=== PATIENT | male | born 1995 | race Hispanic/Latino ===

== ENCOUNTER 2016-08-09 11:43 | Emergency (ER) | payer OTHER ==
[~2016-08-09] VITALS: Ht 182.9 cm; Wt 95.3 kg
[~2016-08-09 11:43] MED LIST: ATIVAN1 M1 PO; BYSTOLIC5 M1 PO; DOXYCYCLINE HY100 M4 PO; ESCITALOPRAM OX10 MG PO; NASONEX17 GM NASB; PANTOPRAZOLE SO20 M1 PO
[2016-08-09] MEDS ORDERED: ESCITALOPRAM OX20 MG PO (12:12)
--- NOTE | 2016-08-09 12:23 | ED EYE COMPLAINT ---
History of Present Illness General Chief Complaint: Eye Problems Stated Complaint: MEDICATED CREAM IN EYE Source: patient Exam Limitations: no limitations Vital Signs & Intake/Output Vital Signs & Intake/Output Vital Signs Date Time Temp Pulse Resp B/P Pulse O2 O2 Flow FiO2 Ox Delivery Rate 08/09 1259 98.1 74 17 136/81 98 Room Air 08/09 1146 97.4 109 16 157/88 98 Room Air Allergies Coded Allergies: Penicillins (Intermediate, RASH 05/21/16) amoxicillin (Intermediate, RASH 05/21/16) Reconcile Medications Doxycycline Hyclate 100 MG TABLET 1 TAB PO BID INFECTION (Reported) Escitalopram Oxalate 10 MG TABLET 1 TAB PO DAILY ANXIETY (Reported) Escitalopram Oxalate 20 MG TABLET 1 TAB PO DAILY DEPRESSION (Reported) Lorazepam (Ativan) 1 MG TABLET 1 TAB PO BID PRN panic attack sixteen...[id number] Mometasone Furoate (Nasonex) 50 MCG SPRAY.PUMP 2 SPRAY NASB DAILY CONGESTION (Reported) Nebivolol HCl (Bystolic) 5 MG TABLET 1 TAB PO DAILY HTN (Reported) Pantoprazole Sodium 20 MG TABLET.DR 1 TAB PO DAILY GERD (Reported) Triage Note: 21 Y/O MALE STATES HE USED PERMETHRINI 5% CREAM LAST NIGHT AND THEN WOKE UP THIS AM AND RUBBED EYE. NOW HAS IRRITATION IN L EYE. Triage Nurses Notes Reviewed? yes Onset: Abrupt Duration: hour(s):, improving Timing: recent history No Modifying Factors: none HPI: 21-year-old male comes into emergency room with complaints of some burning to his left eye. Patient reports that he had permethrin cream 5% that he rubbed on his body last night. Patient reports that he woke up today and it itches left eye and experienced some burning and he felt like his vision was slightly blurry. Denies any vision loss. Denies any other associated symptoms. No contacts. (JOVANI BLACKBURN) Past History Travel History Traveled to [place] past 21 day No Medical History Any Pertinent Medical History? see below for history Neurological: NONE EENT: NONE Cardiovascular: hypertension, palpitations Respiratory: NONE Gastrointestinal: NONE Hepatic: NONE Renal: NONE Musculoskeletal: NONE Psychiatric: anxiety Endocrine: NONE Surgical History Surgical History: none Psychosocial History What is your primary language Pashto Tobacco Use: Never used Family History Hx Contributory? No (JOVANI BLACKBURN) Review of Systems Review of Systems Constitutional: Reports: no symptoms. Eyes: Reports: see HPI. Ear: Reports: no symptoms. Nose: Reports: no symptoms. Mouth: Reports: no symptoms. Throat: Reports: no symptoms. Respiratory: Reports: no symptoms. Cardiovascular: Reports: no symptoms. GI: Reports: no symptoms. Genitourinary: Reports: no symptoms. Musculoskeletal: Reports: no symptoms. Skin: Reports: no symptoms. Neurological/Psychological: Reports: no symptoms. Hematologic/Endocrine: Reports: no symptoms. Immunologic/Allergic: Reports: no symptoms. All Other Systems: Reviewed and Negative (JOVANI BLACKBURN) Physical Exam General Appearance: well developed/nourished, mild distress General Inspection: normal inspection Eyelid: normal inspection Conjunctiva/Sclera: normal inspection Cornea: normal inspection EOM: intact Pupil: normal accommodation, normal pupil, PERRL General Inspection: normal inspection Eyelid: normal inspection Conjunctiva/Sclera: normal inspection Cornea: normal inspection EOM: intact Pupil: normal accommodation, normal pupil, PERRL Physical Exam Head: atraumatic Nose: normal inspection Mouth/Throat: normal mouth inspection Neck: normal inspection Cardiovascular/Respiratory: no respiratory distress Neurologic/Psych: awake, alert, oriented x 3, normal mood/affect Skin: intact, normal color, warm/dry (JOVANI BLACKBURN) Progress Differential Diagnosis: corneal abrasion, corneal foreign body, conjunctivitis, detached retina, glaucoma, globe rupture, retinal art./v. occlusion Plan of Care: 08/09/2016 12:49:32 PM Patient has no signs of erythema on exam. Patient has no symptoms of foreign body. At this point in time patient clinically looks well. Patient reports that he was very anxious and was nervous that something could happen if that medication got into his eyes. No suspicion for corneal abrasion at this time. I spoke with poison control who reports that there is nothing to do other than irrigation. Patient was irrigated with 250 bolus of normal saline here. Patient had irrigated his eye earlier. Symptoms had already improved. Patient vision 20/25 in left eye and 20/20 in right eye. Patient clinically looks well. There is no evidence of any trauma or even injections in the left eye. At this point in time I do not feel patient requires any further evaluation with fluorescein staining and patient can be discharged with instructions to follow- up with ophthalmology if his symptoms worsen in anyway. (JOVANI BLACKBURN) Departure Departure Disposition: HOME OR SELF CARE Condition: Stable Clinical Impression Primary Impression: Chemical exposure of eye Referrals: FREDY REDDY MD (PCP/Family) GAB MORSE,CORNELL Sims Additional Instructions: Return if any concerns worsening symptoms. Return if any vision loss. Return if any increased pain. you can irrigate at home. Please go over all results of today's visit with your primary care doctor. Contact your primary care doctor to let them know you were here in the emergency room. There may be nonspecific findings which may not be related to your visit today here in the emergency room but may require further evaluation and chronic monitoring by your primary care doctor. If you had a laceration today the chance of foreign body always remains. You should follow-up with your primary care doctor for recheck in 3-5 days for a wound check. If you had an x-ray done there is a chance that a fracture could have been missed on initial read and you should follow-up with your primary care doctor for repeat x-rays if symptoms persist. If your blood pressure was elevated here in the emergency room please have rechecked by her primary care doctor within the next 48 hours by your primary care doctor. If you were prescribed a narcotic here in the emergency room or any type of controlled substances you're not allowed to drive while taking this medication or operate any type of heavy machinery. Narcotics can make you feel lightheaded dizziness nausea and can cause constipation. You may need to slat pickler a stool softener. Thank you for choosing [facility] emergency room. Please return to the emergency room immediately if you have any other concerns worsening of symptoms. Departure Forms: Customer Survey General Discharge Information (JOVANI BLACKBURN) PA/GRINDER AND PLATER Co-Sign Statement Statement: ED Attending supervision documentation- [] I saw and evaluated the patient. I have also reviewed all the pertinent lab results and diagnostic results. I agree with the findings and the plan of care as documented in the PA's/GRINDER AND PLATER's documentation. [X] I have reviewed the ED Record and agree with the PA's/GRINDER AND PLATER's documentation. [] Additions or exceptions (if any) to the PAs/GRINDER AND PLATER's note and plan are summarized below: [] (JHONNY BRISCOE DO)
[2016-08-09 12:59] VITALS: BP 136/81
== END 2016-08-09 13:01 ==
LOC: ERH 11:43
DX: Z77.098 Contact with and (suspected) exposure to other hazardous, chiefly nonmedicinal, chemicals (principal)

== ENCOUNTER 2016-08-16 01:50 | Emergency (ER) | payer OTHER ==
[~2016-08-16] VITALS: Ht 182.9 cm; Wt 90.7 kg
[~2016-08-16 01:50] MED LIST changes: +ESCITALOPRAM OX20 MG PO
--- NOTE | 2016-08-16 02:55 | ED GENERAL ADULT ---
History of Present Illness General Chief Complaint: General Adult Stated Complaint: UPPER ABD PAIN, LEFT TESTICLE PAIN? Source: patient, old records Exam Limitations: no limitations Vital Signs & Intake/Output Vital Signs & Intake/Output Vital Signs Date Time Temp Pulse Resp B/P Pulse O2 O2 Flow FiO2 Ox Delivery Rate 08/16 0235 96.9 65 18 151/67 98 Room Air Allergies Coded Allergies: Penicillins (Intermediate, RASH 08/16/16) amoxicillin (Intermediate, RASH 08/16/16) Reconcile Medications Baclofen 10 MG TABLET 1-2 TAB PO TID PRN muscle strain Escitalopram Oxalate 20 MG TABLET 1 TAB PO DAILY DEPRESSION (Reported) Ibuprofen 600 MG TABLET 1 TAB PO Q6PRN PRN pain with food Lorazepam (Ativan) 1 MG TABLET 1 TAB PO BID PRN panic attack sixteen...[id number] Mometasone Furoate (Nasonex) 50 MCG SPRAY.PUMP 2 SPRAY NASB DAILY CONGESTION (Reported) Nebivolol HCl (Bystolic) 5 MG TABLET 1 TAB PO DAILY HTN (Reported) Pantoprazole Sodium 20 MG TABLET.DR 1 TAB PO DAILY GERD (Reported) Triage Note: TRIAGE: PATIENT TO ER FROM HOME REPORTING ABD PAIN SINCE YESTERDAY W/ SHARP PAINS IN [place], REPORTS "THOUGHT IT WAS JUST ANXIETY BUT TAKING ANXIETY MEDS." HERE RECENTLY FOR L GROIN PAIN INTO L TESTICLE WHICH SUBSIDED WHEN PATIENT GOT TO WAITING ROOM, "LIKE A TWISTING FEELING." DENIES V/D/ URINARY DIFFICULTIES. REPORTS INTERMITTENT "HEAD HEAVINESS." Triage Nurses Notes Reviewed? yes Onset: 2 days Duration: day(s):, better Timing: recent history Injury Environment: work Severity: mild Modifying Factors: Improves With: rest. Worsens With: movement. HPI: 2 days prior to admission patient complains of right upper quadrant bilateral sharp intermittent chest pain worse with movement of arms turning twisting. Prior to admission he complains of left scrotal discomfort that is now gone. He denies fever chills shortness of breath nausea vomiting diarrhea abdominal pain dysuria penile discharge rash headache bleeding. Past History Travel History Traveled to [place] past 21 day No Medical History Any Pertinent Medical History? see below for history Neurological: NONE EENT: NONE Cardiovascular: hypertension, palpitations Respiratory: NONE Gastrointestinal: NONE Hepatic: NONE Renal: NONE Musculoskeletal: NONE Psychiatric: anxiety, depression Endocrine: NONE Blood Disorders: NONE Cancer(s): NONE CADDY/Reproductive: NONE Surgical History Surgical History: none Psychosocial History What is your primary language Belarusian Tobacco Use: Never used Family History Hx Contributory? No Review of Systems Review of Systems Constitutional: Reports: no symptoms. EENTM: Reports: no symptoms. Respiratory: Reports: no symptoms. Cardiovascular: Reports: see HPI, chest pain. GI: Reports: see HPI, abdominal pain. Genitourinary: Reports: see HPI, pain. Musculoskeletal: Reports: no symptoms. Skin: Reports: no symptoms. Neurological/Psychological: Reports: no symptoms. Hematologic/Endocrine: Reports: no symptoms. Immunologic/Allergic: Reports: no symptoms. All Other Systems: Reviewed and Negative Physical Exam Physical Exam General Appearance: well developed/nourished, alert, awake, anxious, mild distress Head: atraumatic, normal appearance Eyes: Bilateral: normal appearance, PERRL, EOMI. Ears, Nose, Throat: normal pharynx, normal ENT inspection Neck: normal inspection, supple, full range of motion, no midline tenderness Respiratory: normal breath sounds, chest non-tender, no respiratory distress, quiet respiration, lungs clear Cardiovascular: regular rate/rhythm, normal peripheral pulses, norml femoral pulses equa Peripheral Pulses: 4+ carotid (R), 4+ carotid (L) Gastrointestinal: normal bowel sounds, soft, non-tender, no organomegaly, No testicular tenderness + cremasteric reflex bilateral Back: normal inspection, normal range of motion, no vertebral tenderness Extremities: normal inspection, normal capillary refill, normal range of motion, no edema Neurologic/Psych: no motor/sensory deficits, awake, alert, oriented x 3, normal gait, manager diversity II-XII nml as tested Reflexes: 2+: bicep (R), bicep (L). Skin: intact, normal color, warm/dry Lymphatic: no anterior cervical pascale Core Measures ACS in differential dx? No CVA/TIA Diagnosis: No Severe Sepsis Present: No Septic Shock Present: No Progress Differential Diagnoses I considered the following diagnoses in my evaluation of the patient: Musculoskeletal strain abdominal hernia torsion Plan of Care: Orders Procedure Date/time Status URINALYSIS 08/16 315 Complete Laboratory Tests 08/16/16 0323: Urine Color STRAW, Urine Clarity CLEAR, Urine pH 6.5, Ur Specific [place] 1.015, Urine Protein NEG, Urine Ketones NEG, Urine Nitrite NEG, Urine Bilirubin NEG, Urine Urobilinogen 0.2, Ur Leukocyte Esterase NEG, Ur Microscopic EXAM NOT REQUIRED, Urine Hemoglobin NEG, Urine Glucose NEG NSAID muscle relaxant (KEVIN AMIN MD) Diagnostic Imaging: Viewed by Me: Ultrasound. Discussed w/RAD: Ultrasound. Radiology Impression: no acute abnormality Initial ED EKG: none Departure Departure Time of Disposition: 251 Disposition: HOME OR SELF CARE Condition: Stable Clinical Impression Primary Impression: Deep inguinal pain, left Secondary Impressions: Musculoskeletal pain Referrals: FREDY REDDY MD (PCP/Family) Departure Forms: Customer Survey General Discharge Information RELEASE- WORK Prescriptions: Current Visit Scripts Ibuprofen 1 TAB PO Q6PRN PRN pain #50 TAB with food Baclofen 1-2 TAB PO TID PRN muscle strain #30 TAB Critical Care Note Critical Care Note Critical Care Time: non-applicable
--- NOTE | 2016-08-16 04:02 | ULTRASOUND REPORT ---
EXAMINATION: US SCROTUM CLINICAL INFORMATION: Left testicular pain. COMPARISON: None. TECHNIQUE: A sonogram of the scrotum was performed assessing edgar-scale appearance and color Doppler flow. FINDINGS: RIGHT: Right testicle measures 4.5 x 2.1 x 3.6 cm, volume 24.2 mL. Parenchymal echotexture is normal. No focal testicular parenchymal lesions are visualized. Normal symmetric intratesticular flow is visualized. Right epididymal head is normal in size. There is a 0.6 cm epididymal head cyst. No right hydrocele or varicocele is seen. LEFT: Left testicle measures 4.7 x 1.9 x 2.9 cm, volume 18.4 mL. Parenchymal echotexture is normal. No focal testicular parenchymal lesions are visualized. Normal symmetric intratesticular flow is visualized. Left epididymal head is normal in size. No left hydrocele or varicocele is seen. IMPRESSION: No evidence of testicular torsion. Right epididymal head cyst.
[2016-08-16] MEDS ORDERED: BACLOFEN10 M1 PO (04:16)
[2016-08-16] MEDS ORDERED: IBUPROFEN600 M1 PO (04:16)
[2016-08-16 04:30] VITALS: BP 142/65
== END 2016-08-16 04:31 ==
LOC: ERH 01:50
DX: R10.30 Lower abdominal pain, unspecified (principal); M79.1 Myalgia; R07.9 Chest pain, unspecified
CPT/HCPCS: 81003

== ENCOUNTER 2016-11-17 13:25 | Emergency (ER) | payer OTHER ==
[~2016-11-17 13:25] MED LIST changes: +BACLOFEN10 M1 PO; +IBUPROFEN600 M1 PO
[2016-11-17 13:41] VITALS: BP 147/92
--- NOTE | 2016-11-17 13:50 | ED GI/GU/ABDOMINAL COMPLAINT ---
History of Present Illness General Chief Complaint: Male Genitourinary Problems Stated Complaint: "I NEED TO BE CHECKED FOR STDS" Source: patient, old records Exam Limitations: no limitations Vital Signs & Intake/Output Vital Signs & Intake/Output Vital Signs Date Time Temp Pulse Resp B/P Pulse O2 O2 Flow FiO2 Ox Delivery Rate 11/17 1341 97.2 90 22 147/92 98 Allergies Coded Allergies: Penicillins (Intermediate, RASH 08/16/16) amoxicillin (Intermediate, RASH 08/16/16) Reconcile Medications Escitalopram Oxalate 20 MG TABLET 1 TAB PO DAILY DEPRESSION (Reported) Ibuprofen 600 MG TABLET 1 TAB PO Q6PRN PRN pain with food Lorazepam (Ativan) 1 MG TABLET 1 TAB PO BID PRN panic attack sixteen...[id number] Mometasone Furoate (Nasonex) 50 MCG SPRAY.PUMP 2 SPRAY NASB DAILY CONGESTION (Reported) Nebivolol HCl (Bystolic) 5 MG TABLET 1 TAB PO DAILY HTN (Reported) Pantoprazole Sodium 20 MG TABLET.DR 1 TAB PO DAILY GERD (Reported) Triage Note: PER PT FEELING ANXIOUS AND WANT TO BE CHECKED FRO STD, PER PT TINGLING IN PENIS SINCE LAST NIGHT NO DISCHARGE Triage Nurses Notes Reviewed? yes Onset: Abrupt Duration: day(s): (2), better, constant Timing: recent history Quality/Severity: burning Severity Numbers: 4 Location: urethral Radiation: no radiation Activities at Onset: none Prior Abdominal Problems: similar symptoms (d/w chlaymdia several yrs ago) Sexually Active: Yes Last Time You Were Sexual: less than 2 months ago Sexual Orientation: Heterosexual Use of Protection: Yes Sometimes No Modifying Factors: none Associated Symptoms: denies HPI: 21-year-old male with anxiety presents emergency room for evaluation complaining of burning tingling with urination that he first noticed yesterday. Patient states he's had history of similar symptoms in the past was diagnosed with chlamydia which was treated at the time of antibiotics. Patient states that he was last sexually active approximately 3 weeks ago with a new partner that he did not use protection with. He denies any rashes to the skin penile or scrotal pain. He states he urinated today without any complaints. No discharge hematuria. No abdominal pain fever chills nausea or vomiting. he was recently check in october 2016 he states for std's and was negative (RUBA DIEZ) Past History Travel History Traveled to [place] past 21 day No Medical History Any Pertinent Medical History? see below for history Neurological: NONE EENT: NONE Cardiovascular: hypertension, palpitations Respiratory: NONE Gastrointestinal: NONE Hepatic: NONE Renal: NONE Musculoskeletal: NONE Psychiatric: anxiety, depression Endocrine: NONE Blood Disorders: NONE Cancer(s): NONE CUT ORDER HAND/Reproductive: NONE Surgical History Surgical History: none Psychosocial History What is your primary language Greenlandic Tobacco Use: Never used Family History Hx Contributory? No (RUBA DIEZ) Review of Systems Review of Systems Constitutional: Reports: see HPI. All Other Systems: Reviewed and Negative Comments Review of systems: See HPI, All other systems negative. Constitutional, no chills no fever, no malaise HEENT: no sore throat no congestion, Cardiovascular: No chest pain , no palpitation Skin, no rashes, no change in skin Respiratory: No dyspnea no cough no sputum GI: No nausea no vomiting, no diarrhea : dysuria No hematuria, no frequency, no discharge Muscle skeletal: No joint pain, no joint swelling, no back pain, no neck pain, Neurologic: no headache Psych: No stress Heme/endocrine: No bruising no bleeding Immunology: No lymphadenopathy (RUBA DIEZ) Physical Exam Physical Exam General Appearance: well developed/nourished, no apparent distress, alert, awake Gastrointestinal: soft Comments: Well-developed well-nourished patient in no apparent distress. HEENT: Atraumatic, extraocular motion intact Neck: Supple, FROM Back: FROM Cardiovascular: Regular rate and rhythms no murmurs rubs or gallops, Respiratory: No respiratory distress. Patient speaking in full complete sentences. Breath sounds clear to auscultation bilaterally: NO W/R/R Abdomen: Soft nontender no rebound or guarding : deferred Extremities: full range of motion Neuro: Alert and oriented x3 Skin: Warm & dry;No appreciable rash on exposed skin Psych: Mood affect normal, normal memory normal judgment. Core Measures ACS in differential dx? No Severe Sepsis Present: No Septic Shock Present: No (RUBA DIEZ) Progress Differential Diagnosis: epididymitis, orchitis, prostatitis, STD, testicular torsion, ureterolithiasis, urinary retention, UTI/pyelo Plan of Care: Orders Procedure Date/time Status CHLAMYDIA-GC DNA PROBE 11/17 1339 Active Microbiology 11/17 1400 URINE ROUT: GC DNA Probe - RECD 11/17 1400 URINE ROUT: Chlamydia DNA Probe (GIULIANA) - RECD I discussed with the patient at length plan of care we will treat prophylactically at this time with Rocephin, azithromycin. He will follow up with medical records this week for results. Discussed with him that if they're positive he needs to reach out to his exposed partners. I had an extensive conversation regarding need for close follow up with their primary care physician this week as well as return precautions. I answered all of their questions, they feel comfortable with the plan and follow-up care. (RUBA DIEZ) Initial ED EKG: none (RUBA DIEZ) Departure Departure Time of Disposition: 1359 Disposition: HOME OR SELF CARE Condition: Stable Clinical Impression Primary Impression: Encounter for screening examination for sexually transmitted disease Referrals: FREDY REDDY MD (PCP/Family) Additional Instructions: As discussed been treated prophylactically for suspected sexual transmitted disease today. Follow-up in 48-72 hours for results. Return anytime sooner with any concerns. Departure Forms: Customer Survey General Discharge Information (RUBA DIEZ) PA/ART DEPARTMENT HEAD Co-Sign Statement Statement: ED Attending supervision documentation- [] I saw and evaluated the patient. I have also reviewed all the pertinent lab results and diagnostic results. I agree with the findings and the plan of care as documented in the PA's/ART DEPARTMENT HEAD's documentation. [X] I have reviewed the ED Record and agree with the PA's/ART DEPARTMENT HEAD's documentation. [] Additions or exceptions (if any) to the PAs/ART DEPARTMENT HEAD's note and plan are summarized below: [] (KAMILLE MORSE,CATA Basilio)
== END 2016-11-17 14:13 ==
LOC: ERH 13:25
DX: Z11.3 Encounter for screening for infections with a predominantly sexual mode of transmission (principal)
CPT/HCPCS: 87491; 87591; 96372; J0696

== ENCOUNTER 2016-12-11 21:20 | Emergency (ER) | payer OTHER ==
[~2016-12-11] VITALS: Ht 182.9 cm; Wt 99.8 kg
--- NOTE | 2016-12-11 21:25 | ED HAND/WRIST INJURY COMPLAINT ---
History of Present Illness General Chief Complaint: Hand or Wrist Injury Stated Complaint: LAC TO RIGHT THUMB Source: patient, old records Exam Limitations: no limitations Vital Signs & Intake/Output Vital Signs & Intake/Output Vital Signs Date Time Temp Pulse Resp B/P B/P Pulse O2 O2 Flow FiO2 Mean Ox Delivery Rate 12/12 2127 97.9 100 15 153/78 100 Room Air Allergies Coded Allergies: Penicillins (Intermediate, RASH 08/16/16) amoxicillin (Intermediate, RASH 08/16/16) Reconcile Medications Escitalopram Oxalate 20 MG TABLET 1 TAB PO DAILY DEPRESSION (Reported) Ibuprofen 600 MG TABLET 1 TAB PO Q6PRN PRN pain with food Lorazepam (Ativan) 1 MG TABLET 1 TAB PO BID PRN panic attack sixteen...[id number] Mometasone Furoate (Nasonex) 50 MCG SPRAY.PUMP 2 SPRAY NASB DAILY CONGESTION (Reported) Nebivolol HCl (Bystolic) 5 MG TABLET 1 TAB PO DAILY HTN (Reported) Pantoprazole Sodium 20 MG TABLET.DR 1 TAB PO DAILY GERD (Reported) Triage Nurses Notes Reviewed? yes Occurred: just prior to arrival Duration: hour(s): (1), constant Timing: recent history Injury Environment: home Severity: mild, moderate Severity Numbers: 5 Pain/Injury Location: Right: 1st finger. Context: crush Method of Injury: direct blow No Modifying Factors: none Associated Symptoms: swelling HPI: 20-year-old male presents to ER for evaluation status post sustaining crush injury to his right first finger when he accidentally closed in a car door. He is right-hand dominant. HE NOW presents complaining mild aching sudden onset pain nonradiating to the distal aspect of the right first finger. He denies any numbness or tingling no difficulty with range of motion there was no other injury (RUBA DIEZ) Past History Travel History Traveled to [place] past 21 day No Medical History Any Pertinent Medical History? 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 No (RUBA DIEZ) Review of Systems Review of Systems Constitutional: Reports: no symptoms, see HPI. All Other Systems: Reviewed and Negative Comments Review of systems: See HPI, All other systems negative. Constitutional, no chills no fever, no malaise HEENT: no sore throat no congestion, Cardiovascular: No chest pain , no palpitation Skin: no rashes, no change in skin Respiratory: No dyspnea no cough no sputum no hemoptysis GI: No nausea no vomiting, no diarrhea, no bloating/constipation Muscle skeletal: No joint pain, no joint swelling, no back pain Neurologic: No numbness no confusion, no headache Psych: No stress Heme/endocrine: No bruising Immunology: No lymphadenopathy (RUBA DIEZ) Physical Exam Physical Exam General Appearance: well developed/nourished, alert, awake Hand Left: normal range of motion Hand Right: normal range of motion Comments: Well-developed well-nourished patient in no apparent distress. HEENT: Atraumatic, extraocular motion intact Neck: Supple, FROM Back: FROM Cardiovascular: Regular rate and rhythms no murmurs rubs or gallops, Respiratory: No respiratory distress. Patient speaking in full complete sentences. Breath sounds clear to auscultation bilaterally: NO W/R/R Shoulder: Atraumatic/Stable. FROM . Elbow: Atraumatic/stable. FROM. No laxity Upper arm/Forearm: Atraumatic. Nontender. No edema, 5 out of 5 fruit stuffer strength noted to bilateral upper extremities Hand/Wrist: Stable, skin is intact there is a small subungual hematoma noted to the right first nail, there is mild ecchymosis and swelling over the distal aspect the right first finger sensation is intact capillary refills within normal limits the rest of the hand and first metacarpal are nontender with full range of motion Pulses: Normal/equal radial pulses bilaterally. Brisk cap refill lower Extremities: full range of motion Neuro: awake, alert, and oriented to person, place and time. There were no obvious focal neurologic abnormalities. Skin: Warm & dry;No appreciable rash on exposed skin Psych: Mood affect normal, normal memory normal judgment. (RUBA DIEZ) Progress Differential Diagnosis: contusion, compartment syndrome, dislocation, fracture, sprain Plan of Care: Orders Procedure Date/time Status XRY-FINGERS, RIGHT 12/12 2127 Active MOTRIN 800MG GIVEN IN TRIAGE PATIENT: AUSTIN MASTERSLANDO PRESENT AGE: 21 PATIENT ACCOUNT NO: [id number] : 93 LOCATION: [facility] ORDERING PHYSICIAN: RUBA ESPOSITO SERVICE DATE: 12/11/16 EXAM TYPE: RAD - XRY-FINGERS, RIGHT EXAMINATION: Right thumb CLINICAL INFORMATION: Trauma to the thumb COMPARISON: None TECHNIQUE: 4 views of the right thumb. FINDINGS: No fracture. No dislocation. No dislocation. No soft tissue abnormality. Tiny deedee of bone at the volar side of the IP joint of thumb consistent with small periarticular calcification/ossicle. IMPRESSION: Normal thumb. DICTATED BY: RAYMOND PEMBERTON MD DATE/TIME DICTATED:12/11/162208 LEGAL PROJECT MANAGER:KHANH DATE/TIME TRANSCRIBED:12/11/162208 CONFIDENTIAL, DO NOT COPY WITHOUT APPROPRIATE AUTHORIZATION. <Electronically signed in Other Vendor System> SIGNED BY: RAYMOND PEMBERTON MD 12/11/162213 finger splinted by me. I Discussed with the patient at length all of their results. I had an extensive conversation regarding need for close follow up with their primary care physician this week as well as return precautions. I answered all of their questions, they feel comfortable with the plan and follow- up care. (RUBA DIEZ) Diagnostic Imaging: Viewed by Me: Radiology Read. Discussed w/RAD: Radiology Read. (RUBA DIEZ) Departure Departure Time of Disposition: 2214 Disposition: HOME OR SELF CARE Condition: Stable Clinical Impression Primary Impression: Finger contusion Secondary Impressions: Subungual hematoma Referrals: BARRY MORSE,FREDY (PCP/Family) Additional Instructions: Rest ice and Tylenol Motrin as needed finger splint as discussed. follow up with your primary care physician, return to the ER with any concerns or signs of infection. Departure Forms: Customer Survey General Discharge Information (RUBA DIEZ) PA/DATABASE MANAGEMENT SPECIALIST Co-Sign Statement Statement: ED Attending supervision documentation- [] I saw and evaluated the patient. I have also reviewed all the pertinent lab results and diagnostic results. I agree with the findings and the plan of care as documented in the PA's/DATABASE MANAGEMENT SPECIALIST's documentation. [X] I have reviewed the ED Record and agree with the PA's/DATABASE MANAGEMENT SPECIALIST's documentation. [] Additions or exceptions (if any) to the PAs/DATABASE MANAGEMENT SPECIALIST's note and plan are summarized below: [] (SANIYA MORSE,URMILA)
[2016-12-11 21:28] VITALS: BP 153/78
--- NOTE | 2016-12-11 22:14 | RADIOLOGY REPORT ---
EXAMINATION: Right thumb CLINICAL INFORMATION: Trauma to the thumb COMPARISON: None TECHNIQUE: 4 views of the right thumb. FINDINGS: No fracture. No dislocation. No dislocation. No soft tissue abnormality. Tiny deedee of bone at the volar side of the IP joint of thumb consistent with small periarticular calcification/ossicle. IMPRESSION: Normal thumb.
== END 2016-12-11 22:21 ==
LOC: ERH 21:20
DX: S60.111A Contusion of right thumb with damage to nail, initial encounter (principal); W23.0XXA Caught, crushed, jammed, or pinched between moving objects, initial encounter; Y92.9 Unspecified place or not applicable; Y93.9 Activity, unspecified
CPT/HCPCS: 73140-RT